=== PATIENT | female | born 1970 | race Caucasian/White ===

== ENCOUNTER 2017-05-19 12:36 | Emergency (ER) | payer SELFPAY ==
[~2017-05-19] VITALS: Ht 170.2 cm; Wt 76.8 kg
[~2017-05-19 12:36] MED LIST: AMOXICILLIN500 MG OR; LORTAB 10 OR; LORTAB 5 OR; NAPROSYN375 MG PO; NO; NO HOME MEDS; PENICILLIN VK250 MG PO
[2017-05-19 16:01] VITALS: BP 115/82
== END 2017-05-19 16:01 | disposition home or self-care (01) | DRG 566 ==
LOC: ED 12:36
DX: M77.32 Calcaneal spur, left foot (principal); F41.9 Anxiety disorder, unspecified

== ENCOUNTER 2017-12-21 00:46 | Emergency (ER) | payer SELFPAY ==
[~2017-12-21] VITALS: Ht 170.2 cm; Wt 78.2 kg
[2017-12-21 02:00] LABS: INFLUENZA A NONE DETECTED (NONE DETECT); INFLUENZA B NONE DETECTED (NONE DETECT)
[2017-12-21] MEDS ORDERED: CODEINE/GUAIFEN1 SOL PO (02:44)
[2017-12-21 02:50] VITALS: BP 111/80
== END 2017-12-21 02:50 | disposition home or self-care (01) | DRG 192 ==
LOC: ED 00:46
PROVIDERS: Emergency Medicine
DX: J44.0 Chronic obstructive pulmonary disease with (acute) lower respiratory infection (principal); F17.210 Nicotine dependence, cigarettes, uncomplicated; J20.9 Acute bronchitis, unspecified; F41.0 Panic disorder [episodic paroxysmal anxiety]

== ENCOUNTER 2018-06-10 11:14 | Emergency (ER) | payer SELFPAY ==
[~2018-06-10] VITALS: Ht 170.2 cm; Wt 74.1 kg
[~2018-06-10 11:14] MED LIST changes: +CODEINE/GUAIFEN1 SOL PO
[2018-06-10] MEDS ORDERED: CITALOPRAM40 MG PO (11:51)
[2018-06-10] MEDS ORDERED: VISTARIL25 MG PO (11:53)
[2018-06-10 12:03] LABS: HEMATOCRIT 44.2 % (37.0-47.0); HEMOGLOBIN 15.2 g/dl (12.0-16.0); IMMATURE GRANULOCYTES 0.5 % (0.0-5.0); MEAN CELL VOLUME 92.7 fL CALC (80.0-100.0); MEAN CORPUSCULAR HGB 31.9 pG CALC (26.0-32.0); MEAN CORPUSCULAR HGB CONC 34.4 g/L CALC (32.0-36.0); NEUT# 5.03 thou/uL (2.00-7.15); RED BLOOD COUNT 4.77 mill/uL (4.20-5.60); RED CELL DISTRI WIDTH 12.2 % (11.5-15.5)
[2018-06-10 12:22] LABS: ALBUMIN 4.4 g/dL (3.2-5.0); ALKALINE PHOSPHATASE 73 u/l (38-126); ANION GAP 14 (6-22 (CALC)); BILIRUBIN, TOTAL 0.5 mg/dL (0.0-1.4); BUN 10 mg/dL (7-17); BUN/CREATININE RATIO 18 (12-20 (CALC)); CARBON DIOXIDE 23 mmol/l (22-30); CHLORIDE 106 mmol/l (95-108); CREATININE 0.6 mg/dL (0.5-1.0); GFR > 60 ML/MIN (>=60 (CALC)); GFR FOR AFR.AMER. > 60 ML/MIN (>=60 (CALC)); POTASSIUM 4.1 mmol/l (3.5-5.1); SGOT/AST 32 u/l (14-36); SGPT/ALT 45 u/l (9-52); SODIUM 139 mmol/l (137-146); TOTAL PROTEIN 7.5 g/dL (6.3-8.2)
[2018-06-10 14:15] VITALS: BP 106/86
[2018-06-10] MEDS ORDERED: PROTONIX40 MG PO (14:16)
[2018-06-10] MEDS ORDERED: ULTRAM50 M1 PO (14:16)
== END 2018-06-10 14:29 | disposition home or self-care (01) | DRG 313 ==
LOC: ED 11:14
PROVIDERS: Emergency Medicine
DX: R07.89 Other chest pain (principal); K85.90 Acute pancreatitis without necrosis or infection, unspecified; F41.0 Panic disorder [episodic paroxysmal anxiety]; F17.210 Nicotine dependence, cigarettes, uncomplicated

== ENCOUNTER 2018-09-21 08:27 | Emergency (ER) | payer OTHER ==
[~2018-09-21] VITALS: Ht 170.2 cm; Wt 75.0 kg
[~2018-09-21 08:27] MED LIST changes: +CITALOPRAM40 MG PO; +PROTONIX40 MG PO; +ULTRAM50 M1 PO; +VISTARIL25 MG PO
[2018-09-21 10:05] VITALS: BP 130/92
[2018-09-21] MEDS ORDERED: FLEXERIL PO (10:07)
[2018-09-21] MEDS ORDERED: TORADOL PO (10:07)
== END 2018-09-21 10:19 | disposition home or self-care (01) | DRG 552 ==
LOC: ED 08:27
DX: S16.1XXA Strain of muscle, fascia and tendon at neck level, initial encounter (principal); S39.012A Strain of muscle, fascia and tendon of lower back, initial encounter; F41.0 Panic disorder [episodic paroxysmal anxiety]; F17.210 Nicotine dependence, cigarettes, uncomplicated; V49.9XXA Car occupant (driver) (passenger) injured in unspecified traffic accident, initial encounter

== ENCOUNTER 2018-10-27 12:15 | Emergency (ER) | payer SELFPAY ==
[~2018-10-27] VITALS: Ht 170.2 cm; Wt 86.4 kg
[~2018-10-27 12:15] MED LIST changes: +FLEXERIL PO; +TORADOL PO
[2018-10-27 12:49] LABS: HEMATOCRIT 41.8 % (37.0-47.0); HEMOGLOBIN 14.4 g/dl (12.0-16.0); IMMATURE GRANULOCYTES 0.3 % (0.0-5.0); MEAN CELL VOLUME 92.9 fL CALC (80.0-100.0); MEAN CORPUSCULAR HGB CONC 34.4 g/L CALC (32.0-36.0); NEUT# 3.82 thou/uL (2.00-7.15); RED BLOOD COUNT 4.5 mill/uL (4.20-5.60); RED CELL DISTRI WIDTH 12.3 % (11.5-15.5)
[2018-10-27 12:59] LABS: ANION GAP 12 (6-22 (CALC)); BUN 10 mg/dL (7-17); BUN/CREATININE RATIO 16 (12-20 (CALC)); CARBON DIOXIDE 21 mmol/l (22-30); CHLORIDE 109 mmol/l (95-108); CREATININE 0.6 mg/dL (0.5-1.0); GFR > 60 ML/MIN (>=60 (CALC)); GFR FOR AFR.AMER. > 60 ML/MIN (>=60 (CALC)); SODIUM 138 mmol/l (137-146)
[2018-10-27 13:41] VITALS: BP 118/72
== END 2018-10-27 13:41 | disposition home or self-care (01) | DRG 313 ==
LOC: ED 12:15 → ED-I 13:18 → ED 13:41
PROVIDERS: Family Medicine
DX: R07.9 Chest pain, unspecified (principal); F41.0 Panic disorder [episodic paroxysmal anxiety]; F17.200 Nicotine dependence, unspecified, uncomplicated

== ENCOUNTER 2018-12-17 08:15 | Emergency (ER) | payer SELFPAY ==
[~2018-12-17] VITALS: Ht 170.2 cm; Wt 77.3 kg
[2018-12-17] MEDS ORDERED: MEDDOSEPAK PO (09:45)
[2018-12-17] MEDS ORDERED: FLEXERIL PO (09:45)
[2018-12-17] MEDS ORDERED: TORADOL PO (09:45)
[2018-12-17 10:02] VITALS: BP 105/75
== END 2018-12-17 10:07 | disposition home or self-care (01) | DRG 552 ==
LOC: ED 08:15
DX: M54.5 Low back pain (principal); G89.29 Other chronic pain; M41.9 Scoliosis, unspecified; V49.9XXS Car occupant (driver) (passenger) injured in unspecified traffic accident, sequela; F17.210 Nicotine dependence, cigarettes, uncomplicated; I25.2 Old myocardial infarction; N20.0 Calculus of kidney

== ENCOUNTER 2019-06-28 10:04 | Inpatient (IN) | payer SELFPAY ==
[~2019-06-28] VITALS: Ht 170.2 cm; Wt 81.6 kg
[2019-06-28] VITALS (15 sets, daily range): BP systolic 77–122; BP diastolic 45–76
[~2019-06-28 10:04] MED LIST changes: +MEDDOSEPAK PO
--- NOTE | 2019-06-28 10:07 | NUR ---
PATIENT TO ROOM FOR EXAM, AT BEDSIDE.
[2019-06-28] MEDS ORDERED: PROAIR HFA108 MCG/AC IN (10:22)
[2019-06-28] MEDS ORDERED: FLOVENT HF44 MCG/ACT IN (10:23)
[2019-06-28 10:24] LABS: HEMOGLOBIN 14.4 g/dl (12.0-16.0); IMMATURE GRANULOCYTES 0.3 % (0.0-5.0); MEAN CELL VOLUME 91.9 fL CALC (80.0-100.0); MEAN CORPUSCULAR HGB 31.5 pG CALC (26.0-32.0); MEAN CORPUSCULAR HGB CONC 34.3 g/L CALC (32.0-36.0); NEUT# 4.29 thou/uL (2.00-7.15); RED BLOOD COUNT 4.57 mill/uL (4.20-5.60); RED CELL DISTRI WIDTH 12.4 % (11.5-15.5)
--- NOTE | 2019-06-28 10:25 | NUR ---
ANESTHESIA AT BEDSIDE.
--- NOTE | 2019-06-28 10:32 | NUR ---
ANESTHESIA PUSHED VERSED 2MG IV AND PROPOFOL 150MG IVP. PT UNRESPONSIVE AND SUPPORTIVE AIRWAY MANAGEMENT BY ANESTHESIA. DEFIBRILLATED PT AT 100 IMTIAZ X1. CARDIO VERSION OBTAINED. HR 110. PT TOLERATED WELL. O2 MAINTAINED.
[2019-06-28 10:43] LABS: ANION GAP 13 (6-22 (CALC)); BUN 16 mg/dL (7-17); BUN/CREATININE RATIO 20 (12-20 (CALC)); CARBON DIOXIDE 22 mmol/l (22-30); CHLORIDE 110 mmol/l (95-108); CREATININE 0.8 mg/dL (0.5-1.0); GFR > 60 ML/MIN (>=60 (CALC)); GFR FOR AFR.AMER. > 60 ML/MIN (>=60 (CALC)); POTASSIUM 3.9 mmol/l (3.5-5.1); SODIUM 141 mmol/l (137-146)
--- NOTE | 2019-06-28 10:50 | NUR ---
ANESTHESIA AT BEDSIDE. PT WITH EYES CLOSED RESP EVEN AND UNLABORED. O2@2LPM VIA NC FOR SUPPORT. SKIN PWD. CONTINUOUS IV BOLUS L AC
--- NOTE | 2019-06-28 11:03 | NUR ---
PT AWAKE AND ORIENTED X2. STILL SLIGHTLY GROGGY, FOLLOWS COMMANDS WELL.TRACKS WELL WITH EYES. SPEECH CLEAR. PT SPOKE TO ON THE PHONE WHO IS EN ROUTE.
--- NOTE | 2019-06-28 11:27 | NUR ---
CONTINUES AWAKE AND ALERT AND CONVERSIVE WITH GEORGE AT BEDSIDE. VSS. RESP EVEN AND UNLABORED. HR 91 WITH OCCASSIONAL BIGEMY AND TRIGEMY. MD AWARE. PT ASYMPTOMATIC AT THIS TIME
--- NOTE | 2019-06-28 11:51 | NUR ---
EDP AT BEDSIDE TO DISCUSS CLINICAL FINDINGS AND POC WIHT PT AND AT BEDSIDE. DENIES QUESTIONS AND AGREEABLE TO ADMIT. HR 88 WITH OCCASIONAL PVCS. PT DENIES SOB OR CP
--- NOTE | 2019-06-28 12:25 | NUR ---
RESTING IN NO ACUTE DISTRESS. VSS. NSR ON THE MONITOR. AWARE. DENIES CP OR SOB. UPDATED ONWAIT TIME. TRAY ORDERED
--- NOTE | 2019-06-28 12:52 | NUR ---
CALLED REPORT TO DHRUV REDDY RN ICU
--- NOTE | 2019-06-28 12:56 | NUR ---
DR LIZAMA AT BEDSIDE FOR EVALUATION
--- NOTE | 2019-06-28 13:20 | NUR ---
PT TO ICU ROOM 5 VIA STRETCHER ACCOMPANIED BY ER NURSE. PT AMBULATED TO SCALED THEN TO RESTROOM TO VOID. THEN TO BED. PT TOLERATED WELL. PT IS ALERT AND ORIENTED X3. ADMISSION ASSESSMENT COMPLETED AT THIS TIME. IV PATENT X2. ORIENTED TO ROOM AND CALL LIGHT SYSTEM. CALL LIGHT IN REACH.WILL CONTINUE TO MONITOR.
--- NOTE | 2019-06-28 13:20 | NUR ---
pt transported to icu via stretcher in stable condiiton
[2019-06-28 13:52] LABS: BARBITURATES NEGATIVE (NEGATIVE); COCAINE NEGATIVE (NEGATIVE); METHADONE NEGATIVE (NEGATIVE); OXCYCODONE NEGATIVE (NEGATIVE); TETRAHYDROCANNABIONOL NEGATIVE (NEGATIVE); TRICYLIC ANTIDEPRESSANTS NEGATIVE (NEGATIVE)
--- NOTE | 2019-06-28 14:45 | NUR ---
NOTIFIED DR LIZAMA OF MULTI PVC AND TRIGEMINY AND HYPOTENSION. PT REQUESTING NICOTINE PATCH. AWAITING MD ORDERS AT THIS TIME
--- NOTE | 2019-06-28 16:34 | NUR ---
PT RESTING IN BED. SPOUSE AT BEDSIDE. RESP ARE EVEN AND UNLABORED. NO DISTRESS NOTED. CALL LIGHT IN REACH. WILL CONTINUE TO MONITOR
--- NOTE | 2019-06-28 17:43 | NUR ---
INDUSTRIAL SALES MANAGER AT BEDSIDE AT THIS TIME.
--- NOTE | 2019-06-28 18:53 | NUR ---
REPORT RECEIVED FROM STEVE BARTLETT. ECHO COMPLETED AND TECH LEFT BEDSIDE. LAB NOTIFIED TO DRAW SCHEDULED TROPONIN.
--- NOTE | 2019-06-28 19:05 | NUR ---
PT UP TO BATHROOM TO VOID 300ML CLEAR YELLOW URINE. ASSESSMENT COMPLETED AT THIS TIME. DENIES PAIN AND SOB. RESPIRATIONS EVEN AND UNLABORED ROOM AIR. PT STATES SHE FEELS COMFORTABLE WITH FAN ON HER. SIGNIFICANT OTHER AT BEDSIDE. PT DID NOT EAT DINNER; STATES SHE DID NOT LIKE IT. SNACK OFFERED. PLAN OF CARE DISCUSSED. PT ENCOURAGED TO VERBALIZE CONCERNS. STATES UNDERSTANDING. SAFETY MEASURES IN PLACE. CALL LIGHT WITHIN REACH.
--- NOTE | 2019-06-28 19:31 | NUR ---
LAB AT BEDSIDE FOR TROPONIN.
--- NOTE | 2019-06-28 22:27 | NUR ---
PT AMBULATED TO BATHROOM WITH STEADY GAIT; REPOSITONED SELF INTO SEMI FOWLERS AND REATTACHED TO MONITOR. REMAINS SINUS RHYTHM WITH FREQUENT PVC'S ON TELEMETRY. PT REQUESTED TO IV TO RAC BE REMOVED R/T DISCOMFORT; IV SITE REMOVED AT THIS TIME. NO OTHER REQUESTS OR CONCERNS AT THIS TIME. REMAINS AT BEDSIDE.
[2019-06-29] VITALS (8 sets, daily range): BP systolic 105–132; BP diastolic 62–84
--- NOTE | 2019-06-29 00:08 | NUR ---
LAB AT BEDSIDE.
--- NOTE | 2019-06-29 02:02 | NUR ---
PT ASLEEP AT THIS TIME WITH NO SIGNS OF DISTRESS. RESPIRATIONS EVEN AND UNLABORED. NSR WITH OCCASIIONAL PVCS. VSS. SAFETY MEASURES IN PLACE. CALL LIGHT WITHIN REACH.
--- NOTE | 2019-06-29 04:47 | NUR ---
PT AWAKENS SPONTANEOUSLY; ALERT AND ORIENTED. CONTINUES TO DENY PAIN. NO ACUTE CHANGES IN CONDITION THROUGHOUT THE NIGHT. PVC'S ARE LESS FREQUENT THAN AT START OF SHIFT. PT DENIES SOB OR PALPITATIONS. VSS.
--- NOTE | 2019-06-29 05:21 | NUR ---
LAB AT BEDSIDE.
[2019-06-29 06:17] LABS: CHOLESTEROL HDL RATIO 5.4 (<4.4 (CALC)); MAGNESIUM 2.1 mg/dL (1.6-2.3)
--- NOTE | 2019-06-29 06:45 | NUR ---
RECIEVED REPORT FROM STEVE SEXTON. ASSUMED PT CARE.
--- NOTE | 2019-06-29 06:55 | NUR ---
ASSISTED PT TO BATHROOM, 800ML OP.
--- NOTE | 2019-06-29 07:00 | NUR ---
ASSESSMENT COMPLETED. PT A&OX3, ABLE TO MAKE NEEDS KNOWN. PT SPOUSE REMAINS AT BEDSIDE. PT REMAINS IN SR ON TELEMETRY. AFEBRILE. PT DENIES CHEST PAIN, SOB OR DISTRESS AT THIS TIME, DISCUSS POC, PT ASKED FOR COFFEE, DECAF GIVEN. CALL LIGHT IN REACH. WILL MONITOR CLOSELY.
--- NOTE | 2019-06-29 07:35 | NUR ---
PT REPOSITIONED SELF, BREAKFAST TRAY SET UP. PT SITTING ON SIDE OF BED EATING.
--- NOTE | 2019-06-29 07:51 | NUR ---
PT SPOUSE BACK AT BEDSIDE.
--- NOTE | 2019-06-29 08:10 | NUR ---
DR. LIZAMA AT BEDSIDE FOR ASSESSMENT AND TO DISCUSS PLAN OF CARE. PT SPOUSE AT BEDSIDE.
--- NOTE | 2019-06-29 08:35 | NUR ---
PT REQUESTED BREATHING TREATMENT, RT NOTIFIED.
--- NOTE | 2019-06-29 08:42 | NUR ---
RT AT BEDSIDE FOR TX.
--- NOTE | 2019-06-29 09:53 | NUR ---
NOTIFIED DR. KENNEDY OF CONSULT.
--- NOTE | 2019-06-29 10:05 | NUR ---
SET UP PT FOR SELF BATH. CALL LIGHT IN REACH, SPOUSE REMAINS AT BEDSIDE. GUEST TRAY ORDERED FOR LUNCH REQUESTED.
--- NOTE | 2019-06-29 10:17 | NUR ---
SRIKANTH COE AT BEDSIDE FOR ASSESMNET AND TO DISCUSS POC.
--- NOTE | 2019-06-29 10:55 | NUR ---
RECIEVED CALL FROM SARAVANAN DUKE STATING TO HOLD CARDIZEM UNTIL DR. CARMICHAEL HAS A CHANCE TO REVIEW, PT UPDATED ON STATUS. CALL LIGHT IN REACH. WILL MONITOR.
--- NOTE | 2019-06-29 12:00 | NUR ---
DR. LIZAMA AT BEDSIDE, CHANGED MEDICATION, DISCUSSED POC WITH PT AND PT SPOUSE. PT VERBALIZED UNDERSTANDING. NEW ORDERS RECIEVED. WORK RELEASE SIGNED AND GIVEN TO PT AND COPY PLACED IN CHART. WILL CONTINUE TO MONITOR.
[2019-06-29] MEDS ORDERED: LOPRESSOR25 MG PO (12:07)
--- NOTE | 2019-06-29 13:00 | NUR ---
PT RESTING IN RECLINER, WATCHING TV, VSS, AFEBRILE. CALL LIGHT IN REACH. WILL MONITOR.
--- NOTE | 2019-06-29 14:16 | NUR ---
IV site discontinued, cath intact. No edema , no redness, voices no discomfort.
== END 2019-06-29 14:45 | disposition home or self-care (01) | DRG 310 ==
LOC: ED 10:04 → ED-I 11:36 → ED 12:06 → ICU 12:07
PROVIDERS: Family Medicine; ADMIT Internal Medicine; ATTEND Internal Medicine
PROC: 5A2204Z Restoration of Cardiac Rhythm, Single (ICD-10-PCS; principal; 2019-06-28)
DX: I47.1 Supraventricular tachycardia (principal); J44.9 Chronic obstructive pulmonary disease, unspecified; I49.3 Ventricular premature depolarization; F41.0 Panic disorder [episodic paroxysmal anxiety]; M41.9 Scoliosis, unspecified; M19.90 Unspecified osteoarthritis, unspecified site; F17.200 Nicotine dependence, unspecified, uncomplicated; F15.99 Other stimulant use, unspecified with unspecified stimulant-induced disorder
CPT/HCPCS: J3475

== ENCOUNTER 2019-07-19 06:36 | Observation (INO) | payer SELFPAY ==
[~2019-07-19] VITALS: Ht 170.2 cm; Wt 82.0 kg
[~2019-07-19 06:36] MED LIST changes: +FLOVENT HF44 MCG/ACT IN; +LOPRESSOR25 MG PO; +PROAIR HFA108 MCG/AC IN
[2019-07-19 07:03] LABS: HEMATOCRIT 38.8 % (37.0-47.0); IMMATURE GRANULOCYTES 0.5 % (0.0-5.0); MEAN CELL VOLUME 94.2 fL CALC (80.0-100.0); MEAN CORPUSCULAR HGB 31.6 pG CALC (26.0-32.0); MEAN CORPUSCULAR HGB CONC 33.5 g/L CALC (32.0-36.0); NEUT# 3.09 thou/uL (2.00-7.15); RED BLOOD COUNT 4.12 mill/uL (4.20-5.60); RED CELL DISTRI WIDTH 12.3 % (11.5-15.5)
[2019-07-19] MEDS ORDERED: ASPIRIN ADULT L81 M2 PO (07:08)
[2019-07-19] MEDS ORDERED: FLOVENT HF220 MCG/AC IN (07:09)
[2019-07-19] MEDS ORDERED: SPIRIVA HANDIHALER IN (07:10)
[2019-07-19 07:15] LABS: ALKALINE PHOSPHATASE 74 u/l (38-126); ANION GAP 11 (6-22 (CALC)); BILIRUBIN, TOTAL 0.5 mg/dL (0.0-1.4); BUN 12 mg/dL (7-17); BUN/CREATININE RATIO 20 (12-20 (CALC)); CARBON DIOXIDE 25 mmol/l (22-30); CHLORIDE 108 mmol/l (95-108); CREATININE 0.6 mg/dL (0.5-1.0); GFR > 60 ML/MIN (>=60 (CALC)); GFR FOR AFR.AMER. > 60 ML/MIN (>=60 (CALC)); POTASSIUM 3.7 mmol/l (3.5-5.1); SGOT/AST 25 u/l (14-36); SODIUM 141 mmol/l (137-146); TOTAL PROTEIN 6.7 g/dL (6.3-8.2)
[2019-07-19 07:27] LABS: MYOGLOBIN 33 ng/mL (0 - 62)
[2019-07-19 09:55] VITALS: BP 129/85
[2019-07-19 15:46] VITALS: BP 108/76
[2019-07-19 19:42] VITALS: BP 126/77
[2019-07-20] VITALS: BP 106/63
[2019-07-20 04:00] VITALS: BP 121/71
[2019-07-20 08:15] VITALS: BP 139/63
[2019-07-20 10:45] VITALS: BP 124/60
[2019-07-20 15:00] VITALS: BP 110/61
== END 2019-07-20 17:36 | disposition home or self-care (01) | DRG 313 ==
LOC: ED 06:36 → ED-I 08:21 → ED 08:56 → MS2 08:57
PROVIDERS: Emergency Medicine; ADMIT Internal Medicine; ATTEND Internal Medicine
DX: R07.89 Other chest pain (principal); I47.1 Supraventricular tachycardia; J44.9 Chronic obstructive pulmonary disease, unspecified; M19.90 Unspecified osteoarthritis, unspecified site; F41.0 Panic disorder [episodic paroxysmal anxiety]; F17.200 Nicotine dependence, unspecified, uncomplicated
CPT/HCPCS: G0378

== ENCOUNTER 2019-08-20 11:00 | Emergency (ER) | payer SELFPAY ==
[~2019-08-20] VITALS: Ht 170.2 cm; Wt 75.0 kg
[~2019-08-20 11:00] MED LIST changes: +ASPIRIN ADULT L81 M2 PO; +FLOVENT HF220 MCG/AC IN; +SPIRIVA HANDIHALER IN
[2019-08-20 11:39] LABS: IMMATURE GRANULOCYTES 0.5 % (0.0-5.0); MEAN CORPUSCULAR HGB 31.6 pG CALC (26.0-32.0); MEAN CORPUSCULAR HGB CONC 33.6 g/L CALC (32.0-36.0); NEUT# 5.9 thou/uL (2.00-7.15); RED BLOOD COUNT 4.84 mill/uL (4.20-5.60); RED CELL DISTRI WIDTH 12.8 % (11.5-15.5)
[2019-08-20 11:41] LABS: HEMATOCRIT 45.5 % (37.0-47.0); HEMOGLOBIN 15.3 g/dl (12.0-16.0)
[2019-08-20] MEDS ORDERED: KAPSPARGO SPRIN25 MG PO (11:43)
[2019-08-20] MEDS ORDERED: TOPROL XL25 MG PO (11:44)
[2019-08-20 11:52] LABS: ALBUMIN 4.8 g/dL (3.2-5.0); ALKALINE PHOSPHATASE 83 u/l (38-126); ANION GAP 18 (6-22 (CALC)); BILIRUBIN, TOTAL 0.7 mg/dL (0.0-1.4); BUN 12 mg/dL (7-17); BUN/CREATININE RATIO 11 (12-20 (CALC)); CARBON DIOXIDE 21 mmol/l (22-30); CHLORIDE 107 mmol/l (95-108); CREATININE 1.1 mg/dL (0.5-1.0); ETHYL ALCOHOL 0 mg/dl (0-30); GFR 53 ML/MIN (>=60 (CALC)); GFR FOR AFR.AMER. > 60 ML/MIN (>=60 (CALC)); LIPASE 99 u/l (23-300); MAGNESIUM 1.9 mg/dL (1.6-2.3); SGOT/AST 31 u/l (14-36); SODIUM 141 mmol/l (137-146); TOTAL PROTEIN 7.7 g/dL (6.3-8.2)
[2019-08-20 11:53] LABS: POTASSIUM 4.6 mmol/l (3.5-5.1)
[2019-08-20 11:58] LABS: ACT PARTIAL THROMBO TIME 26.8 SECONDS (20.0-32.5); D-DIMER 0.27 mg/L (0.19-0.60); PROTHROMBIN TIME 10.5 SECONDS (9.0-12.5)
[2019-08-20 12:39] VITALS: BP 106/53
== END 2019-08-20 12:39 | disposition short-term general hospital (02) | DRG 310 ==
LOC: ED 11:00
DX: I47.1 Supraventricular tachycardia (principal); R07.9 Chest pain, unspecified; J44.9 Chronic obstructive pulmonary disease, unspecified
CPT/HCPCS: J0153

== ENCOUNTER 2019-09-29 08:18 | Emergency (ER) | payer SELFPAY ==
[~2019-09-29] VITALS: Ht 170.2 cm; Wt 79.5 kg
[~2019-09-29 08:18] MED LIST changes: +KAPSPARGO SPRIN25 MG PO; +TOPROL XL25 MG PO
[2019-09-29 08:52] LABS: HEMOGLOBIN 13.6 g/dl (12.0-16.0); IMMATURE GRANULOCYTES 0.3 % (0.0-5.0); MEAN CELL VOLUME 93.5 fL CALC (80.0-100.0); MEAN CORPUSCULAR HGB 31.8 pG CALC (26.0-32.0); NEUT# 3.43 thou/uL (2.00-7.15); RED BLOOD COUNT 4.28 mill/uL (4.20-5.60); RED CELL DISTRI WIDTH 12.5 % (11.5-15.5)
[2019-09-29 09:10] LABS: ANION GAP 11 (6-22 (CALC)); BUN 11 mg/dL (7-17); BUN/CREATININE RATIO 17 (12-20 (CALC)); CARBON DIOXIDE 25 mmol/l (22-30); CHLORIDE 108 mmol/l (95-108); CREATININE 0.6 mg/dL (0.5-1.0); GFR > 60 ML/MIN (>=60 (CALC)); GFR FOR AFR.AMER. > 60 ML/MIN (>=60 (CALC)); POTASSIUM 4.2 mmol/l (3.5-5.1); SODIUM 139 mmol/l (137-146)
[2019-09-29] MEDS ORDERED: PROVENTIL108 MCG/AC PO (09:56)
[2019-09-29] MEDS ORDERED: PREDNISONE50 MG PO (09:56)
[2019-09-29] MEDS ORDERED: ZPAK PO (09:56)
[2019-09-29 10:02] VITALS: BP 112/65
== END 2019-09-29 10:14 | disposition left against medical advice (07) | DRG 203 ==
LOC: ED 08:18
PROVIDERS: Family Medicine
DX: J40 Bronchitis, not specified as acute or chronic (principal); R07.89 Other chest pain; Z91.19 Patient's noncompliance with other medical treatment and regimen; R06.02 Shortness of breath; R05 Cough; R06.2 Wheezing; I25.2 Old myocardial infarction; J44.9 Chronic obstructive pulmonary disease, unspecified

== ENCOUNTER 2019-10-09 08:16 | Emergency (ER) | payer SELFPAY ==
[~2019-10-09] VITALS: Ht 170.2 cm; Wt 82.0 kg
[~2019-10-09 08:16] MED LIST changes: +PREDNISONE50 MG PO; +PROVENTIL108 MCG/AC PO; +ZPAK PO
[2019-10-09 09:04] LABS: HEMATOCRIT 41.2 % (37.0-47.0); HEMOGLOBIN 13.9 g/dl (12.0-16.0); IMMATURE GRANULOCYTES 0.6 % (0.0-5.0); MEAN CELL VOLUME 94.7 fL CALC (80.0-100.0); MEAN CORPUSCULAR HGB CONC 33.7 g/L CALC (32.0-36.0); NEUT# 3.76 thou/uL (2.00-7.15); RED BLOOD COUNT 4.35 mill/uL (4.20-5.60); RED CELL DISTRI WIDTH 12.6 % (11.5-15.5)
[2019-10-09 09:20] LABS: ALBUMIN 4.2 g/dL (3.2-5.0); ALKALINE PHOSPHATASE 89 u/l (38-126); ANION GAP 12 (6-22 (CALC)); BUN 12 mg/dL (7-17); BUN/CREATININE RATIO 17 (12-20 (CALC)); CARBON DIOXIDE 22 mmol/l (22-30); CHLORIDE 109 mmol/l (95-108); CREATININE 0.7 mg/dL (0.5-1.0); GFR > 60 ML/MIN (>=60 (CALC)); GFR FOR AFR.AMER. > 60 ML/MIN (>=60 (CALC)); POTASSIUM 4.1 mmol/l (3.5-5.1); SODIUM 139 mmol/l (137-146); TOTAL PROTEIN 7.3 g/dL (6.3-8.2)
[2019-10-09 09:29] LABS: BILIRUBIN, TOTAL 0.3 mg/dL (0.0-1.4); SGOT/AST 64 u/l (14-36)
[2019-10-09 09:32] LABS: MYOGLOBIN 40 ng/mL (0 - 62)
[2019-10-09] MEDS ORDERED: MEDDOSEPAK PO (10:02)
[2019-10-09 10:14] VITALS: BP 116/76
== END 2019-10-09 10:14 | disposition left against medical advice (07) | DRG 313 ==
LOC: ED 08:16
PROVIDERS: Emergency Medicine
DX: R07.9 Chest pain, unspecified (principal); J44.9 Chronic obstructive pulmonary disease, unspecified; Z87.891 Personal history of nicotine dependence; Z53.29 Procedure and treatment not carried out because of patient's decision for other reasons

== ENCOUNTER 2019-12-21 | Emergency (ER) | payer SELFPAY ==
[2019-12-21] MEDS ORDERED: ZOFRAN4 MG/TAB PO (11:42)
[2019-12-21] MEDS ORDERED: TESSALON PER100 MG PO (11:42)
[2019-12-21] MEDS ORDERED: AMOXICILLIN875 MG PO (11:42)
[2020-05-03] MEDS ORDERED: SPIRIVA HANDIH18 MCG (07:38)
== END 2019-12-21 11:56 | disposition home or self-care (01) | DRG 153 ==
DX: J02.0 Streptococcal pharyngitis (principal); J44.9 Chronic obstructive pulmonary disease, unspecified; F17.210 Nicotine dependence, cigarettes, uncomplicated

== ENCOUNTER 2020-07-20 08:05 | Emergency (ER) | payer OTHER ==
[~2020-07-20] VITALS: Ht 170.2 cm; Wt 84.0 kg
[~2020-07-20 08:05] MED LIST changes: +AMOXICILLIN875 MG PO; +SPIRIVA HANDIH18 MCG; +TESSALON PER100 MG PO; +ZOFRAN4 MG/TAB PO
[2020-07-20] MEDS ORDERED: ATORVASTATIN CA10 MG PO (08:45)
[2020-07-20] MEDS ORDERED: BACLOFEN10 MG PO (08:45)
[2020-07-20] MEDS ORDERED: FENOFIBRATE145 MG PO (08:46)
[2020-07-20] MEDS ORDERED: ASPIRIN81 MG PO (08:46)
[2020-07-20] MEDS ORDERED: CYCLOBENZAPR5 MG PO (09:21)
[2020-07-20 10:05] VITALS: BP 130/64
== END 2020-07-20 10:05 | disposition home or self-care (01) ==
LOC: ED 08:05
DX: M54.5 Low back pain (principal); M79.651 Pain in right thigh; M41.9 Scoliosis, unspecified; J44.9 Chronic obstructive pulmonary disease, unspecified; F17.210 Nicotine dependence, cigarettes, uncomplicated; I25.2 Old myocardial infarction

== ENCOUNTER 2021-10-29 08:53 | Day surgery (SDC) | payer MEDICARE, OTHER ==
[~2021-10-29] VITALS: Ht 170.2 cm; Wt 79.4 kg
[~2021-10-29 08:53] MED LIST changes: +APPLE CIDER VI300 MG PO; +ASPIRIN81 MG PO; +ATORVASTATIN CA10 MG PO; +BACLOFEN10 MG PO; +CYCLOBENZAPR5 MG PO; +FENOFIBRATE145 MG PO; +MOTRIN800 MG PO; +NALFON400 MG PO
[2021-10-29 11:45] VITALS: BP 124/84
== END 2021-10-29 11:59 | disposition home or self-care (01) ==
LOC: ENDO 08:53
PROVIDERS: ATTEND Surgery
PROC: 0DJD8ZZ Inspection of Lower Intestinal Tract, Via Natural or Artificial Opening Endoscopic (ICD-10-PCS; principal; 2021-10-29)
DX: Z12.11 Encounter for screening for malignant neoplasm of colon (principal); K57.30 Diverticulosis of large intestine without perforation or abscess without bleeding; K64.8 Other hemorrhoids; J44.9 Chronic obstructive pulmonary disease, unspecified

== ENCOUNTER 2024-08-18 13:19 | Emergency (ER) | payer OTHER, MEDICARE, MEDICAID ==
[2024-08-18] VITALS (8 sets, daily range): BP systolic 93–121; BP diastolic 58–80
[~2024-08-18] VITALS: Ht 170.2 cm; Wt 69.0 kg
[2024-08-18] MEDS ORDERED: diazePAM 10 MG/2 ML VIAL IM ONE (13:35)
[2024-08-18] MEDS ORDERED: KETOROLAC TROMETHAMINE 30 MG/ML SDV IM ONE (13:40)
[2024-08-18] MEDS ORDERED: ONDANSETRON 4 MG/TAB ODT SL ONE (13:40)
[2024-08-18] MEDS ORDERED: METHOCARBAMOL500 MG PO (15:17)
[2024-08-18] MEDS ORDERED: NAPROXEN500 MG PO (15:17)
[2024-08-18] MEDS ORDERED: TRAMADOL HYDROC50 M1 PO (15:17)
[2024-08-18 15:50] LABS: URINE BILIRUBIN - DIPSTICK Negative (NEGATIVE); URINE BLOOD DIPSTICK Trace-intact (NEGATIVE); URINE COLOR Yellow; URINE GLUCOSE - DIPSTICK Negative (NEGATIVE); URINE KETONE Negative (NEGATIVE); URINE LEUK ESTERASE Negative (NEGATIVE); URINE NITRITE - DIPSTICK Negative (Negative); URINE PROTEIN - DIPSTICK Negative (NEG-TRACE); URINE UROBILINOGEN - DIPSTICK 0.2 E.U./dL (0.2)
== END 2024-08-18 16:14 | disposition home or self-care (01) | DRG 552 ==
LOC: ED 13:19
PROVIDERS: Nurse Practitioner
DX: S16.1XXA Strain of muscle, fascia and tendon at neck level, initial encounter (principal); J44.9 Chronic obstructive pulmonary disease, unspecified; V49.40XA Driver injured in collision with unspecified motor vehicles in traffic accident, initial encounter